=== PATIENT | female | born 1985 | race Caucasian/White ===

== ENCOUNTER 2019-10-19 16:37 | Inpatient (IN) ==
[2019-10-19] MEDS ORDERED: FUROSEMIDE 100 MG/10 ML VIAL IV STA (16:44)
[2019-10-19] MEDS ORDERED: MAGNESIUM SULF RIDER 2 GM in PREMIX 1 EACH IV STA (16:44)
[2019-10-19] MEDS ORDERED: methylPREDNISolone SOD SUC 125 MG/2 ML VIAL IV STA (16:44)
[2019-10-19] MEDS ORDERED: ALBUTEROL 2.5 MG/3 ML NEB RESP TX SCH (17:00)
[2019-10-19 17:35] LABS: INR 1.6; PT Patient Result 16.9 SECS (9.6-12.2)
[2019-10-19 17:40] LABS: ABG Base Excess 6.6 MMOL/L (-2.5-2.5); ABG HCO3 30.3 MMOL/L (20-26); ABG Oxygen Saturation 93.5 % (95-100); ABG PO2 83.3 MM HG (80-95); ABG TCO2 35.5 MMOL/L (23-27)
[2019-10-19 17:42] LABS: ABG PCO2 97.2 MM HG (35-48); ABG PH 7.206 (7.35-7.45)
[2019-10-19 17:55] LABS: Albumin 2.7 G/DL (3.4-5.0); Bilirubin,Total 0.4 MG/DL (0.2-1.0); Calcium 7.9 MG/DL (8.5-10.1); Osmolality,Calculated 272.4 MOS/KG (273-304); Total Protein 6.7 G/DL (6.4-8.3)
[2019-10-19 18:19] LABS: Barbiturates Screen,Urine Negative (Negative); Benzodiazepines Screen,Urine Positive (Negative); Cannabinoid Screen,Urine Negative (Negative); Opiate Screen,Urine Negative (Negative); Phencyclidine Screen,Urine Negative (Negative)
[2019-10-19 18:27] LABS: Apearance,Urine CLOUDY (Clear); Bacteria,Urine Moderate /HPF (Few); Bilirubin,Urine Negative (Negative); Blood, Urine Negative (Negative); Glucose,Urine (UA) 50 mg/dL (Negative); Granular Casts,Urine 28 /LPF (0-1); Hyaline Casts,Urine 68 /LPF (0-3); Ketones,Urine Negative (Negative); Mucus,Urine Occasional /LPF (Occasional); Nitrite,Urine Negative (Negative); Protein,Urine >=500 MG/DL; RBC,Urine 6 /HPF (0-4); Squamous Epithelial Cell,Urine Occasional /HPF (0-10); Urine Color Amber (Yellow); Urine Specific Gravity 1.024 (1.001-1.035); WBC,Urine 5 /HPF (0-6)
[2019-10-19] MEDS ORDERED: VECURONIUM 10 MG VIAL IV ONE ×2 (18:28→20:00)
[2019-10-19] MEDS ORDERED: ETOMIDATE 20 MG/10 ML VIAL IV ONE (18:28)
[2019-10-19 18:47] LABS: Basophils % 0.3 % (0.0-0.8); Hemoglobin 11.4 GM/DL (12.0-16.0); Immature Granulocytes % 3.3 %; Immature Granulocytes Absolute 0.26 #; Lymphocytes # 0.8 10*3/uL (1.4-4.0); Lymphocytes % 9.5 % (21.3-54.2); Mean Corpuscular HGB Conc 25.9 GM/DL (32-36); Mean Platelet Volume 10.1 FL (9.6-12.0); Monocytes % 15.7 % (1.7-12.7); NRBC # 0.08 10*3/uL; Neutrophils % 71.2 % (38.7-73.9); Platelet Count 177 T/CUMM (130-400); Red Blood Count 5.57 MC/CUMM (3.8-5.5); Red Cell Distribution Width 21.1 % (9.3-17.3); White Blood Count 7.9 T/CUMM (4-12)
[2019-10-19 19:05] LABS: Polychromasia 1+
[2019-10-19 19:06] LABS: Anisocytosis 1+; Giant Platelets Few; Hypochromasia 1+; Microcytosis 1+; Ovalocytes Few; Platelet Estimate Adequate
[2019-10-19 20:09] LABS: ABG Base Excess 10.5 MMOL/L (-2.5-2.5); ABG HCO3 34.2 MMOL/L (20-26); ABG Oxygen Saturation 98.2 % (95-100); ABG PCO2 64.8 MM HG (35-48); ABG PH 7.378 (7.35-7.45); ABG TCO2 34.4 MMOL/L (23-27)
[2019-10-19] MEDS ORDERED: VECURONIUM 10 MG VIAL IV STA (20:11)
[2019-10-19] MEDS ORDERED: ONDANSETRON 4 MG/2 ML VIAL IV PRN (20:17)
[2019-10-19] MEDS ORDERED: NICOTINE 21 MG/24 HR PATCH TRANSDERM PRN (20:17)
[2019-10-19] MEDS ORDERED: ALBUTEROL 2.5 MG/3 ML NEB RESP TX PRN (20:17)
[2019-10-19] MEDS ORDERED: MORPHINE 4 MG/1 ML VIAL IV PRN (20:17)
[2019-10-19] MEDS ORDERED: DEXTROSE 10% 250 ML BAG IV PRN (20:27)
[2019-10-19] MEDS ORDERED: GLUCAGON 1 MG VIAL IM PRN (20:27)
[2019-10-19] MEDS: MEROPENEM 500 MG in SODIUM CHLORIDE 0.9% 100 ML IV SCH (21:36)
[2019-10-19] MEDS: PANTOPRAZOLE 40 MG VIAL IV SCH (21:39)
[2019-10-19 22:38] LABS: % Iron Saturation 4.5 % (18-50); Ferritin 25.6 ng/ml (8-252)
[2019-10-19] MEDS: methylPREDNISolone SOD SUC 40 MG/1 ML VIAL IV SCH (22:40)
[2019-10-19 22:45] LABS: Thyroid Stimulating Hormone 3.17 uIU/ml (0.358-3.74)
[2019-10-19 23:24] LABS: Hepatitis B Core IgM Quant 0.06 Index; Hepatitis B Surface Ag Quant < 0.10 Index; Hepatitis B Surface Ag Result Negative (Negative); Hepatitis C Virus Ab Quant 0.08 Index; Hepatitis C Virus Ab Result Negative (Negative)
[2019-10-19] MEDS: INSULIN REGULAR 100 UNIT/ML SUBCUT SCH (23:53)
[2019-10-20] MEDS: MEROPENEM 500 MG in SODIUM CHLORIDE 0.9% 100 ML IV SCH ×4 (02:51→20:20)
[2019-10-20 04:07] LABS: ABG Base Excess 12.8 MMOL/L (-2.5-2.5); ABG HCO3 36.5 MMOL/L (20-26); ABG Oxygen Saturation 91.3 % (95-100); ABG PCO2 51.6 MM HG (35-48); ABG PO2 60.2 MM HG (80-95); ABG TCO2 34.4 MMOL/L (23-27); Allen Test Positive; Pt O2 Delivery Device Ventilator
[2019-10-20] MEDS: methylPREDNISolone SOD SUC 40 MG/1 ML VIAL IV SCH ×3 (05:28→16:44)
[2019-10-20] MEDS: INSULIN REGULAR 100 UNIT/ML SUBCUT SCH ×3 (05:28→18:24)
[2019-10-20 06:00] LABS: Basophils % 0.2 % (0.0-0.8); Hematocrit 40.1 VOL% (35.7-47.0); Immature Granulocytes % 2.1 %; Lymphocytes # 0.9 10*3/uL (1.4-4.0); Lymphocytes % 18.3 % (21.3-54.2); Mean Corpuscular HGB Conc 26.7 GM/DL (32-36); Mean Corpuscular Volume 76.5 FL (87-102); Mean Platelet Volume 10.6 FL (9.6-12.0); Monocytes % 9.9 % (1.7-12.7); NRBC # 0.07 10*3/uL; Neutrophils % 69.5 % (38.7-73.9); Platelet Count 166 T/CUMM (130-400); Red Blood Count 5.24 MC/CUMM (3.8-5.5); Red Cell Distribution Width 20.9 % (9.3-17.3); White Blood Count 4.8 T/CUMM (4-12)
[2019-10-20 06:07] LABS: INR 1.5; PT Patient Result 15.7 SECS (9.6-12.2)
[2019-10-20 06:24] LABS: Albumin 2.4 G/DL (3.4-5.0); Bilirubin,Total 1.4 MG/DL (0.2-1.0); Osmolality,Calculated 274.2 MOS/KG (273-304); Risk Ratio 4.55; Total Protein 6.1 G/DL (6.4-8.3); VLDL CHOLESTEROL 35.4 MG/DL
[2019-10-20 06:27] LABS: Hemoglobin 10.7 GM/DL (12.0-16.0)
[2019-10-20 06:35] LABS: Hypochromasia 1+; Microcytosis 1+; Platelet Estimate Adequate
[2019-10-20] MEDS: FUROSEMIDE 40 MG/4 ML VIAL IV SCH ×2 (08:01→16:01)
[2019-10-20 10:38] LABS: ABG Base Excess 15.5 MMOL/L (-2.5-2.5); ABG HCO3 39.4 MMOL/L (20-26); ABG PCO2 42.2 MM HG (35-48); ABG PH 7.578 (7.35-7.45); ABG PO2 61.6 MM HG (80-95)
[2019-10-20] MEDS: PANTOPRAZOLE 40 MG VIAL IV SCH (20:16)
[2019-10-21] MEDS: INSULIN REGULAR 100 UNIT/ML SUBCUT SCH ×4 (01:56→18:49)
[2019-10-21] MEDS: MEROPENEM 500 MG in SODIUM CHLORIDE 0.9% 100 ML IV SCH ×4 (02:53→22:09)
[2019-10-21 04:53] LABS: ABG Base Excess 16.4 MMOL/L (-2.5-2.5); ABG HCO3 40.3 MMOL/L (20-26); ABG Oxygen Saturation 90.7 % (95-100); ABG PH 7.582 (7.35-7.45); ABG PO2 59.3 MM HG (80-95); ABG TCO2 35.8 MMOL/L (23-27); Allen Test Positive; Pt O2 Delivery Device Ventilator
[2019-10-21] MEDS: methylPREDNISolone SOD SUC 40 MG/1 ML VIAL IV SCH ×4 (06:12→18:29)
[2019-10-21 06:27] LABS: Basophils % 0.2 % (0.0-0.8); Hematocrit 40.1 VOL% (35.7-47.0); Immature Granulocytes % 1.2 %; Immature Granulocytes Absolute 0.06 #; Lymphocytes # 0.6 10*3/uL (1.4-4.0); Lymphocytes % 11.4 % (21.3-54.2); Mean Corpuscular HGB Conc 27.9 GM/DL (32-36); Mean Corpuscular Volume 74.4 FL (87-102); Monocytes % 8.1 % (1.7-12.7); NRBC # 0.08 10*3/uL; Neutrophils % 79.1 % (38.7-73.9); Platelet Count 186 T/CUMM (130-400); Red Blood Count 5.39 MC/CUMM (3.8-5.5); Red Cell Distribution Width 21.1 % (9.3-17.3); White Blood Count 5.2 T/CUMM (4-12)
[2019-10-21 06:54] LABS: Hemoglobin 11.2 GM/DL (12.0-16.0)
[2019-10-21 07:10] LABS: Albumin 2.2 G/DL (3.4-5.0); Bilirubin,Total 1.3 MG/DL (0.2-1.0); Osmolality,Calculated 283.5 MOS/KG (273-304); Total Protein 5.9 G/DL (6.4-8.3)
[2019-10-21] MEDS: FUROSEMIDE 40 MG/4 ML VIAL IV SCH ×2 (08:07→19:42)
[2019-10-21 09:29] LABS: Hypochromasia 4+; Microcytosis 2+; Platelet Estimate Adequate
[2019-10-21] MEDS ORDERED: MAGNESIUM SULF RIDER 4 GM in PREMIX 1 EACH IV PRN ×2 (09:40→15:36)
[2019-10-21] MEDS: MAGNESIUM SULF RIDER 2 GM in PREMIX 1 EACH IV PRN (10:18)
[2019-10-21] MEDS ORDERED: methylPREDNISolone SOD SUC 40 MG/1 ML VIAL IV SCH (11:30)
[2019-10-21 12:45] LABS: ABG Base Excess 16.9 MMOL/L (-2.5-2.5); ABG HCO3 40.8 MMOL/L (20-26); ABG Oxygen Saturation 89.8 % (95-100); ABG PCO2 56.4 MM HG (35-48); ABG PH 7.495 (7.35-7.45); ABG PO2 61.5 MM HG (80-95); ABG TCO2 38.4 MMOL/L (23-27); Allen Test Positive; Pt O2 Delivery Device Ventilator
[2019-10-21] MEDS: fentaNYL INJ 1,250 MCG in SODIUM CHLORIDE 0.9% 225 ML IV PRN ×2 (14:22→21:16)
[2019-10-21] MEDS ORDERED: EPINEPHrine 1 MG/ML VIAL ONE (15:09)
[2019-10-21] MEDS ORDERED: EPINEPHrine 1 MG/10 ML SYRINGE IV ONE (15:09)
[2019-10-21] MEDS ORDERED: EPINEPHrine 1 MG/10 ML SYRINGE ONE (15:09)
[2019-10-21 15:28] LABS: Calcium 7.7 MG/DL (8.5-10.1); Osmolality,Calculated 285.5 MOS/KG (273-304)
[2019-10-21] MEDS ORDERED: MAGNESIUM SULF RIDER 2 GM in PREMIX 1 EACH IV PRN (15:36)
[2019-10-21] MEDS: LEVOFLOXACIN INJ 750 MG in PREMIX 1 EACH IV SCH (15:54)
[2019-10-21] MEDS: HEPARIN DRIP 25,000 UNITS/500 ML PREMIX IV SCH (16:07)
[2019-10-21] MEDS: POTASSIUM CHLORIDE RIDER 10 MEQ in PREMIX 1 EACH IV PRN ×2 (16:27→18:34)
[2019-10-21 19:46] LABS: HIV Antigen/Antibody Result Nonreactive (Nonreactive)
[2019-10-21] MEDS: PANTOPRAZOLE 40 MG VIAL IV SCH (20:11)
[2019-10-21] MEDS: VANCOMYCIN INJ 2,000 MG in SODIUM CHLORIDE 0.9% 500 ML IV SCH (20:14)
[2019-10-22] MEDS: INSULIN REGULAR 100 UNIT/ML SUBCUT SCH ×4 (00:43→18:19)
[2019-10-22] MEDS: methylPREDNISolone SOD SUC 40 MG/1 ML VIAL IV SCH ×3 (00:44→16:30)
[2019-10-22] MEDS: POTASSIUM CHLORIDE RIDER 10 MEQ in PREMIX 1 EACH IV PRN ×5 (00:44→12:06)
[2019-10-22] MEDS: HEPARIN DRIP 25,000 UNITS/500 ML PREMIX IV SCH (01:22)
[2019-10-22] MEDS: MEROPENEM 500 MG in SODIUM CHLORIDE 0.9% 100 ML IV SCH ×3 (02:45→15:12)
[2019-10-22 04:09] LABS: ABG Base Excess 16.5 MMOL/L (-2.5-2.5); ABG HCO3 41.9 MMOL/L (20-26); ABG Oxygen Saturation 91.3 % (95-100); ABG PCO2 53.7 MM HG (35-48); ABG PO2 65.6 MM HG (80-95); ABG TCO2 43.5 MMOL/L (23-27); Allen Test Positive; Pt O2 Delivery Device Ventilator
[2019-10-22] MEDS: fentaNYL INJ 1,250 MCG in SODIUM CHLORIDE 0.9% 225 ML IV PRN ×3 (04:15→16:48)
[2019-10-22 06:27] LABS: Eosinophils % 0.2 % (0.00-10.9); Hematocrit 40.9 VOL% (35.7-47.0); Hemoglobin 10.9 GM/DL (12.0-16.0); Immature Granulocytes % 0.8 %; Immature Granulocytes Absolute 0.04 #; Lymphocytes # 0.6 10*3/uL (1.4-4.0); Lymphocytes % 12.8 % (21.3-54.2); Mean Corpuscular HGB Conc 26.7 GM/DL (32-36); Mean Corpuscular Volume 76.9 FL (87-102); Monocytes % 7.9 % (1.7-12.7); Neutrophils % 78.3 % (38.7-73.9); Platelet Count 190 T/CUMM (130-400); Red Blood Count 5.32 MC/CUMM (3.8-5.5); Red Cell Distribution Width 21.1 % (9.3-17.3); White Blood Count 4.8 T/CUMM (4-12)
[2019-10-22 06:29] LABS: Bilirubin,Total 2.1 MG/DL (0.2-1.0); Calcium 7.8 MG/DL (8.5-10.1); Osmolality,Calculated 285.5 MOS/KG (273-304); Total Protein 5.7 G/DL (6.4-8.3)
[2019-10-22] MEDS ORDERED: POTASSIUM CHLORIDE RIDER 10 MEQ in PREMIX 1 EACH IV PRN (08:53)
[2019-10-22] MEDS: MAGNESIUM SULF RIDER 2 GM in PREMIX 1 EACH IV PRN (09:03)
[2019-10-22] MEDS ORDERED: ROCURONIUM 100 MG/10 ML VIAL IV ONE (09:21)
[2019-10-22] MEDS: FUROSEMIDE 40 MG/4 ML VIAL IV SCH (09:23)
[2019-10-22] MEDS: POTASSIUM CHLORIDE RIDER 20 MEQ in PREMIX 1 EACH IV PRN ×2 (09:49→16:48)
[2019-10-22 10:11] LABS: Allen Test Positive; Pt O2 Delivery Device Ventilator
[2019-10-22 10:12] LABS: ABG Base Excess 16.4 MMOL/L (-2.5-2.5); ABG HCO3 42.8 MMOL/L (20-26); ABG Oxygen Saturation 89.3 % (95-100); ABG PCO2 60.7 MM HG (35-48); ABG PH 7.466 (7.35-7.45); ABG PO2 61.2 MM HG (80-95); ABG TCO2 44.7 MMOL/L (23-27)
[2019-10-22] MEDS ORDERED: CISATRACURIUM 10 MG/5 ML VIAL IV ONE (10:38)
[2019-10-22] MEDS ORDERED: ALBUMIN 25% 50 GM in PREMIX 1 EACH IV ONE (10:44)
[2019-10-22] MEDS ORDERED: ALBUMIN 5% 12.5 GM/250 ML VIAL IV ONE (10:56)
[2019-10-22] MEDS ORDERED: FUROSEMIDE 40 MG/4 ML VIAL IV ONE (11:00)
[2019-10-22] MEDS ORDERED: VECURONIUM 10 MG VIAL IV ONE ×2 (11:13→11:15)
[2019-10-22] MEDS ORDERED: FUROSEMIDE INJ 100 MG in SODIUM CHLORIDE 0.9% 90 ML IV SCH (11:30)
[2019-10-22 11:31] LABS: Anisocytosis 2+
[2019-10-22 11:32] LABS: Burr Cells Few; Hypochromasia 4+; Microcytosis 2+; Ovalocytes 1+; Platelet Estimate Adequate; Poikilocytosis 2+; Schistocytes Slight
[2019-10-22] MEDS: VANCOMYCIN INJ 2,000 MG in SODIUM CHLORIDE 0.9% 500 ML IV SCH (11:32)
[2019-10-22] MEDS: CISATRACURIUM 200 MG in SODIUM CHLORIDE 0.9% 180 ML IV SCH ×2 (11:46→17:58)
[2019-10-22] MEDS ORDERED: ALBUMIN 25% 12.5 GM in PREMIX 1 EACH IV SCH (12:00)
[2019-10-22 12:06] LABS: ABG Base Excess 18.2 MMOL/L (-2.5-2.5); ABG HCO3 43.8 MMOL/L (20-26); ABG Oxygen Saturation 86.5 % (95-100); ABG PH 7.511 (7.35-7.45); ABG TCO2 45.5 MMOL/L (23-27); Allen Test Positive; Pt O2 Delivery Device Ventilator
[2019-10-22] MEDS: LEVOFLOXACIN INJ 750 MG in PREMIX 1 EACH IV SCH (15:16)
[2019-10-22 15:22] LABS: ABG HCO3 43.1 MMOL/L (20-26); ABG Oxygen Saturation 88.9 % (95-100); ABG PCO2 52.1 MM HG (35-48); ABG PH 7.543 (7.35-7.45); ABG PO2 55.1 MM HG (80-95); ABG TCO2 39.9 MMOL/L (23-27); Allen Test Positive; Pt O2 Delivery Device Ventilator
[2019-10-22] MEDS ORDERED: fentaNYL INJ 2,500 MCG in SODIUM CHLORIDE 0.9% 450 ML IV PRN (18:13)
[2019-10-23 00:43] VITALS: BP 104/68
[2019-10-23] MEDS ORDERED: FLUCONAZOLE INJ 400 MG in PREMIX 1 EACH IV SCH (09:00)
[2019-10-23 13:00] LABS: Smooth Muscle Antibody Negative (Negative)
== END 2019-10-22 20:07 | disposition hospice, home (50) | DRG 133 ==
LOC: EDUNIT# → EDBD → N.ED 16:37 → N.EDINP 20:15 → SUPCPDRO 20:15 → N.ICU 20:33
PROVIDERS: ADMIT Family Medicine; ATTEND Family Medicine